=== PATIENT | male | born 1990 | race Caucasian/White ===

== ENCOUNTER 2022-04-26 19:04 | Observation (INO) | payer SELFPAY ==
[2022-04-26] MEDS ORDERED: Morphine 4 MG/ML VIAL ONE (21:49)
[2022-04-26] MEDS ORDERED: Ondansetron PF 4 MG/2 ML Vial ONE (21:58)
[2022-04-26 22:09] LABS: #Basophils 0.1 10x3/uL (0.0-0.2); #Monocytes 1.8 10x3/uL (0.0-1.1); #Neutrophils 13.1 10x3/uL (1.5-8.4); %Basophils 0.6 % (0.0-2.0); %Eosinophils 0.2 % (0.0-6.0); %Lymphocytes 13.5 % (18.0-47.0); Mean Corpuscular HGB CONC 35.4 g/dL (32.0-36.0); Mean Corpuscular Hemoglobin 30.5 pg (27.0-33.0); Platelet Count 396 10x3/uL (150-450); RBC Distribution Width 12.3 % (11.5-14.5); Red Blood Cell (RBC) Count 5.91 10x6/uL (4.32-5.72); White Blood Cell (WBC) Count 17.5 10x3/uL (3.5-10.5)
[2022-04-26 22:11] LABS: ALT (SGPT) 65 U/L (8-55); AST (SGOT) 54 U/L (5-34); Alkaline Phosphatase 99 U/L (40-110); Anion Gap 23 mmol/L (10-20); BUN (Urea Nitrogen) 31 mg/dL (8.9-20.6); Bilirubin, Total 0.5 mg/dL (0.2-1.2); CK (CPK) 575 U/L (30-200); Calc. Creatinine Clearance 0 mL/min (70-130); Calcium 11.8 mg/dL (7.8-10.44); Carbon Dioxide 22 mmol/L (22-29); Chloride 95 mmol/L (98-107); Globulin 4.1 g/dL (2.4-3.5); Glucose 88 mg/dL (70-105); Potassium 6.3 mmol/L (3.5-5.1); Protein, Total 10.1 g/dL (6.0-8.3); Sodium 134 mmol/L (136-145)
[2022-04-26 22:59] LABS: Anion Gap 20 mmol/L (10-20); BUN (Urea Nitrogen) 29 mg/dL (8.9-20.6); Calc. Creatinine Clearance 0 mL/min (70-130); Calcium 10.5 mg/dL (7.8-10.44); Carbon Dioxide 22 mmol/L (22-29); Chloride 100 mmol/L (98-107); Glucose 91 mg/dL (70-105); Potassium 5.4 mmol/L (3.5-5.1); Sodium 137 mmol/L (136-145)
[2022-04-27 00:36] LABS: Bilirubin Neg (Negative); Blood, Urine 25 (Negative); Clarity Clear (Clear); Glucose, Urine (Dipstick) Normal (Negative); Ketone, Urine 5 mg/dL (Negative); Leukocyte Negative (Negative); Nitrite Negative (Negative); Protein, Urine (Dipstick) 30 mg/dl (Neg-Trace); Specific Gravity, Urine 1.025 (1.002-1.036); Urobilinogen Normal mg/dL (Less than 2)
[2022-04-27 00:45] LABS: Bacteria/HPF Rare-Few HPF (None Seen); Mucous/LPF 1+ LPF (<2+); Squamous Epithelial 0-3 HPF (0-3)
[2022-04-27 04:09] VITALS: BMI 25.1
[2022-04-27] MEDS ORDERED: HYDROcodone/Acetaminophen 5/325 mg Tablet PO PRN (05:28)
[2022-04-27] MEDS ORDERED: Morphine 4 MG/ML VIAL SLOW IVP PRN (05:28)
[2022-04-27] MEDS ORDERED: Ondansetron ODT 4 MG TAB PO PRN (05:28)
[2022-04-27] MEDS ORDERED: Ondansetron PF 4 MG/2 ML Vial IVP PRN (05:28)
[2022-04-27] MEDS ORDERED: Acetaminophen 325 MG TAB PO PRN (05:28)
[2022-04-27 05:51] LABS: #Basophils 0.1 10x3/uL (0.0-0.2); #Eosinphils 0.2 10x3/uL (0.0-0.5); #Monocytes 1.6 10x3/uL (0.0-1.1); %Basophils 0.6 % (0.0-2.0); %Eosinophils 1.7 % (0.0-6.0); %Lymphocytes 25.3 % (18.0-47.0); %Monocytes 13.3 % (0.0-10.0); %Neutrophils 58.7 % (40.0-75.0); Hemoglobin 15.1 g/dL (13.5-17.5); Mean Corpuscular HGB CONC 35.8 g/dL (32.0-36.0); Mean Corpuscular Hemoglobin 30.7 pg (27.0-33.0); Mean Corpuscular Volume 85.8 fl (81.2-95.1); Mean Platelet Volume 9.1 fl (7.4-10.4); Platelet Count 321 10x3/uL (150-450); RBC Distribution Width 12.5 % (11.5-14.5); Red Blood Cell (RBC) Count 4.92 10x6/uL (4.32-5.72); White Blood Cell (WBC) Count 11.9 10x3/uL (3.5-10.5)
[2022-04-27] MEDS: Lactated Ringer's 1,000 ML IV SCH ×2 (06:00→08:25)
[2022-04-27 06:13] LABS: Anion Gap 18 mmol/L (10-20); BUN (Urea Nitrogen) 24 mg/dL (8.9-20.6); Calc. Creatinine Clearance 100 mL/min (70-130); Calcium 9.7 mg/dL (7.8-10.44); Carbon Dioxide 21 mmol/L (22-29); Chloride 102 mmol/L (98-107); Glucose 84 mg/dL (70-105); Lipase 13 U/L (8-78); Magnesium 2.3 mg/dL (1.6-2.6); Potassium 4.5 mmol/L (3.5-5.1); Sodium 136 mmol/L (136-145)
[2022-04-27 08:16] VITALS: BP 149/69; TEMP 97.9
[2022-04-27] MEDS: Enoxaparin Sodium 40 MG/0.4 ML SYRINGE SC SCH ×2 (08:25→09:47)
[2022-04-27 08:34] LABS: ALT (SGPT) 49 U/L (8-55); AST (SGOT) 42 U/L (5-34); Albumin 4.5 g/dL (3.5-5.0); Alkaline Phosphatase 75 U/L (40-110); Bilirubin, Direct 0.2 mg/dL (0.1-0.3); Bilirubin, Total 0.5 mg/dL (0.2-1.2); Protein, Total 7.4 g/dL (6.0-8.3)
[2022-04-27 13:47] LABS: Hemoglobin A1c 4.8 % (4.0-6.0)
== END 2022-04-27 09:49 | disposition left against medical advice (07) ==
LOC: CSHERS 19:04 → CSHTELE 04-27 03:35 → INTOOBSV 04-27 03:35
PROVIDERS: ADMIT Family Medicine; ATTEND Family Medicine
DX: T67.5XXA Heat exhaustion, unspecified, initial encounter (principal); N17.9 Acute kidney failure, unspecified; E87.5 Hyperkalemia; R10.11 Right upper quadrant pain; Z87.898 Personal history of other specified conditions; Z87.438 Personal history of other diseases of male genital organs; Z88.1 Allergy status to other antibiotic agents; Z72.0 Tobacco use
CPT/HCPCS: 36415; 76705; 76770; 80048; 80053; 80076; 81003; 81015; 82550; 83036; 83690; 83735; 84443; 85025; 93005; 93010; G0378; J1650; J2270; J2405; J7120; Q0162